=== PATIENT | female | born 1955 | race Caucasian/White ===

== ENCOUNTER → 2017-07-31 | Outpatient (CLI) | payer BC ==
[2017-07-31 10:35] LABS: ALT/SGPT 56 U/L (12-78); BLOOD UREA NITROGEN 16 mg/dl (7-18); BUN/CREATININE RATIO 18.1 (10-20); CALCIUM 8.9 mg/dl (8.5-10.1); CARBON DIOXIDE 28 mmol/L (21-32); CHLORIDE 106 mmol/L (98-107); GLUCOSE 102 mg/dl (70-99); POTASSIUM 3.7 mmol/L (3.5-5.1); SODIUM 140 mmol/L (136-145)
[2017-07-31 10:38] LABS: CHOLESTEROL 205 mg/dl (0-200); CHOLESTEROL/HDL RATIO 3.5; HDL CHOLESTEROL 58 mg/dl; LDL CHOLESTEROL CALCULATED 110 mg/dl; TRIGLYCERIDES 184 mg/dl (0-150); VERY LOW DENSITY LIPOPROT CALC 37 mg/dl
== END | disposition home or self-care (01) ==
LOC: C.LAB1850 09:22
PROVIDERS: ATTEND Family Medicine
DX: E78.5 Hyperlipidemia, unspecified (principal); R03.0 Elevated blood-pressure reading, without diagnosis of hypertension; Z11.59 Encounter for screening for other viral diseases